=== PATIENT | female | born 1990 | race Native Hawaiian/Other Pacific Islander ===

== ENCOUNTER 2017-09-03 11:21 | Emergency (ER) | payer OTHER ==
[~2017-09-03] VITALS: Ht 170.1 cm; Wt 77.1 kg
[~2017-09-03 11:21] MED LIST: AMOXIL500 MG PO; ANAPROX DS550 MG PO; BACTRIM DS 8001 TA1 PO; CLARITIN10 MG PO; COLACE100 MG PO; DURICEF500 MG PO; FLONASE 0.05% 121 EA NAS; HYDROCODONE BIT1 T11 PO; IRON FERROUS S325 MG PO; KEFLEX500 MG PO; MACROBID100 M1 PO; MEDROL DOSEPAK4 MG PO; MOTRIN 800 MG E4 TAB PO; MOTRIN800 MG PO; NKHM; PERCOCET 325 MG1 TA2 PO; PERCOCET 325 MG1 TA7 PO; PREDNICOT10 MG PO; PRENATAL1 TA1 PO; TOBREX OPHTH S2.5 ML OPH; VALTREX500 MG PO; VIBRAMYCIN100 MG PO
[2017-09-03 11:53] LABS: BILIRUBIN NEGATIVE (NEGATIVE); BLOOD NEGATIVE (NEGATIVE); CLARITY CLEAR (CLEAR); COLOR YELLOW (YELLOW); GLUCOSE NEGATIVE (NEGATIVE); KETONE NEGATIVE (NEGATIVE); LEUKO ESTERASE NEGATIVE (NEGATIVE); NITRITE NEGATIVE (NEGATIVE); SPECIFIC GRAVITY 1.025 (1.005-1.030); UROBILINOGEN 0.2 E.U./dl (0.2-1.0)
[2017-09-03 12:03] LABS: BACTERIA TRACE; MUCOUS 2+; WBC 0-2 wbc/hpf (0-5)
[2017-09-03 12:04] LABS: BASO % 0.5 % (0.0-1.0); EOS % 0.3 % (1.0-4.0); HEMATOCRIT 38.5 % (37.0-47.0); HEMOGLOBIN 12.5 g/dl (12.0-16.0); LYMPH # 1.7 10*3/uL (1.3-4.4); LYMPH % 44.7 % (27.0-41.0); MEAN CELL VOLUME 90.4 fl (81.0-99.0); MEAN CORPUSCULAR HGB 29.3 pg (27.0-31.0); MEAN CORPUSCULAR HGB CONC 32.5 g/dl (33.0-37.0); MEAN PLATELET VOLUME 11.1 fl (9.6-12.3); MONO # 0.3 10*3/uL (0.1-1.0); MONO % 6.9 % (3.0-9.0); NEUT # 1.8 10*3/uL (2.3-7.9); NEUT % 47.3 % (47.0-73.0); PLATELET COUNT AUTOMATED 155 10*3/uL (130-400); RED BLOOD COUNT 4.26 10*6/uL (4.10-5.10); RED CELL DISTRI WIDTH 11.9 % (0-14.5); WHITE BLOOD COUNT 3.8 10*3/uL (4.8-10.8)
[2017-09-03 12:20] LABS: ALKALINE PHOSPHATASE 37 U/L (45-117); BUN 14 mg/dl (7-24); CHLORIDE 108 mmol/L (98-107); CREATININE 0.68 mg/dL (0.55-1.02); SGOT/AST 10 IU/L (3-35); SGPT/ALT 15 U/L (12-78); SODIUM 141 mmol/L (136-145); TOTAL PROTEIN 6.9 gm/dL (6.4-8.2)
== END 2017-09-03 15:18 | disposition home or self-care (01) ==
LOC: ED 11:21
PROVIDERS: Internal Medicine
DX: R10.31 Right lower quadrant pain (principal)

== ENCOUNTER 2018-03-19 09:03 | Emergency (ER) | payer OTHER ==
[~2018-03-19] VITALS: Ht 170.1 cm; Wt 68.0 kg
[2018-03-19] MEDS ORDERED: NAPROSYN500 MG PO (09:22)
== END 2018-03-19 10:57 | disposition home or self-care (01) ==
LOC: ED 09:03
DX: S90.32XA Contusion of left foot, initial encounter (principal); R03.0 Elevated blood-pressure reading, without diagnosis of hypertension; Z98.890 Other specified postprocedural states; Z79.899 Other long term (current) drug therapy; W22.8XXA Striking against or struck by other objects, initial encounter; Y93.89 Activity, other specified; Y92.89 Other specified places as the place of occurrence of the external cause; Y99.9 Unspecified external cause status

== ENCOUNTER 2019-02-03 12:12 | Emergency (ER) | payer OTHER ==
[~2019-02-03] VITALS: Ht 170.1 cm; Wt 72.6 kg
[~2019-02-03 12:12] MED LIST changes: +NAPROSYN500 MG PO
== END 2019-02-03 13:56 | disposition home or self-care (01) ==
LOC: ED 12:12
DX: S93.401A Sprain of unspecified ligament of right ankle, initial encounter (principal); W01.0XXA Fall on same level from slipping, tripping and stumbling without subsequent striking against object, initial encounter; Y93.01 Activity, walking, marching and hiking; Y92.098 Other place in other non-institutional residence as the place of occurrence of the external cause; Y99.8 Other external cause status

== ENCOUNTER 2019-12-28 14:48 | Emergency (ER) | payer OTHER ==
[~2019-12-28] VITALS: Ht 170.1 cm; Wt 68.9 kg
[2019-12-28] MEDS ORDERED: IBUPROFEN600 MG PO (16:30)
[2019-12-28] MEDS ORDERED: DOXYCYCLINE100 M3 PO (16:30)
== END 2019-12-28 17:00 | disposition home or self-care (01) ==
LOC: ED 14:48
DX: L02.612 Cutaneous abscess of left foot (principal)

== ENCOUNTER 2020-01-21 17:47 | Emergency (ER) | payer OTHER ==
[~2020-01-21] VITALS: Ht 170.1 cm; Wt 68.0 kg
[~2020-01-21 17:47] MED LIST changes: +DOXYCYCLINE100 M3 PO; +IBUPROFEN600 MG PO
== END 2020-01-21 20:45 | disposition home or self-care (01) ==
LOC: ED 17:47
DX: L50.8 Other urticaria (principal); J02.9 Acute pharyngitis, unspecified; R05 Cough; R61 Generalized hyperhidrosis